=== PATIENT | female | born 1990 | race Caucasian/White ===

== ENCOUNTER 2016-07-17 10:36 | Emergency (ER) | payer OTHER ==
[2016-07-17] MEDS ORDERED: TRAMADOL 50 MG TAB ONE (11:41)
[2016-07-17] MEDS ORDERED: ORPHENADRINE 60 MG/2 ML AMP ONE (11:41)
== END 2016-07-17 12:34 | disposition home or self-care (01) ==
LOC: ER 10:36
DX: S29.012A Strain of muscle and tendon of back wall of thorax, initial encounter (principal); X50.0XXA Overexertion from strenuous movement or load, initial encounter; X50.9XXA Other and unspecified overexertion or strenuous movements or postures, initial encounter
CPT/HCPCS: 72072; 96372